=== PATIENT | female | born 1950 | race Caucasian/White ===

== ENCOUNTER 2018-08-18 14:26 | Emergency (ER) | payer BC, MEDICARE ==
[~2018-08-18] VITALS: Ht 154.9 cm; Wt 113.6 kg
[~2018-08-18 14:26] MED LIST: ACET-784 PO; ALPR0.5T4 PO; CITA40TA14 PO; DOCU-119 PO; METF-444 PO; VALS1TAB48 PO
[2018-08-18 14:39] LABS: GLUCOSE,POINT OF CARE 188 MG/DL (70-110)
[2018-08-18 15:53] VITALS: BP 118/63
== END 2018-08-18 15:55 | disposition home or self-care (01) ==
LOC: EMS 14:28
DX: S90.32XA Contusion of left foot, initial encounter (principal); E11.9 Type 2 diabetes mellitus without complications; I10 Essential (primary) hypertension; Z90.49 Acquired absence of other specified parts of digestive tract; Z88.0 Allergy status to penicillin; Z79.84 Long term (current) use of oral hypoglycemic drugs; W20.8XXA Other cause of strike by thrown, projected or falling object, initial encounter; Y93.89 Activity, other specified; Y92.89 Other specified places as the place of occurrence of the external cause; Y99.8 Other external cause status